=== PATIENT | female | born 1985 | race Caucasian/White ===

== ENCOUNTER 2023-10-18 19:19 | Emergency (ER) | payer OTHER ==
[~2023-10-18] VITALS: Ht 167.6 cm; Wt 61.2 kg
[2023-10-18 19:32] VITALS: BP_SYST 127; PULSE 74; RESP 20; TEMP 98; O2SAT 98
[2023-10-18] MEDS ORDERED: SULF1TAB48 PO (20:10)
[2023-10-18] MEDS: SULFAMETHOXAZOLE/TRIMETHOPR DS 1 TABLET PO ONE (20:21)
[2023-10-18 20:32] VITALS: BP_SYST 127; PULSE 74; RESP 20; TEMP 98; O2SAT 98
== END 2023-10-18 20:32 | disposition home or self-care (01) ==
LOC: SED 19:19
DX: S60.463A Insect bite (nonvenomous) of left middle finger, initial encounter (principal); I89.1 Lymphangitis; Z88.0 Allergy status to penicillin; Z88.1 Allergy status to other antibiotic agents; Z98.890 Other specified postprocedural states; Z79.899 Other long term (current) drug therapy; W57.XXXA Bitten or stung by nonvenomous insect and other nonvenomous arthropods, initial encounter; Y93.89 Activity, other specified; Y92.89 Other specified places as the place of occurrence of the external cause; Y99.8 Other external cause status
CPT/HCPCS: 99283